=== PATIENT | female | born 1950 | race Caucasian/White ===

== ENCOUNTER 2018-10-16 00:04 | Emergency (ER) | payer OTHER, BC ==
[~2018-10-16] VITALS: Ht 157.5 cm; Wt 96.6 kg
[2018-10-16 00:15] VITALS: Ht 157.5 cm; Wt 96.6 kg
[2018-10-16 02:01] VITALS: BP 151/64
== END 2018-10-16 02:01 | disposition home or self-care (01) ==
LOC: ED 00:04
DX: H10.11 Acute atopic conjunctivitis, right eye (principal); L25.9 Unspecified contact dermatitis, unspecified cause; I10 Essential (primary) hypertension; E11.9 Type 2 diabetes mellitus without complications; Z88.0 Allergy status to penicillin